=== PATIENT | female | born 2005 | race American Indian/Alaskan Native ===

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

== ENCOUNTER 2025-02-21 15:02 | Emergency (ER) | payer OTHER ==
[2025-02-21 15:57] VITALS: BP 126/74; PULSE 68
== END 2025-02-21 15:50 | disposition home or self-care (01) ==
LOC: DL.ED 15:02
DX: J06.9 Acute upper respiratory infection, unspecified (principal); B97.89 Other viral agents as the cause of diseases classified elsewhere; Z90.49 Acquired absence of other specified parts of digestive tract
CPT/HCPCS: 87081; 87430; 99282; 99283